=== PATIENT | female | born 1960 | race Native Hawaiian/Other Pacific Islander ===

== ENCOUNTER 2017-09-11 00:30 | Emergency (ER) | payer OTHER ==
[2017-09-11] MEDS ORDERED: TDAP Vaccine 0.5 mL Syr IM ONE (01:16)
--- NOTE | 2017-09-11 01:33 | ED PDOC ---
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 States patient she was taking care of has a history of diabetes and advanced dementia. (Cal Kolb) Past Medical History - Provider Review Nursing Documentation Reviewed: Yes <Cal Kolb - Last Filed: 09/11/17 03:14> Family/Social History - Physician Review Nursing Documentation Reviewed: Yes Family/Social History: Other (non-contributory) <Cal Kolb - Last Filed: 09/11/17 03:14> Allergies/Home Meds <Eugenio Shea - Last Filed: 09/11/17 01:53> <Cal Kolb - Last Filed: 09/11/17 03:14> Allergies/Adverse Reactions: Allergies No Known Allergies Allergy (Verified 09/11/17 01:16) Review of Systems - Physician Review All systems were reviewed & negative as marked: Yes - Review of Systems Constitutional: Normal. absent: Fatigue Eyes: Normal. absent: Vision Changes ENT: Normal Respiratory: Normal. absent: SOB, Cough Cardiovascular: Normal. absent: Chest Pain, Palpitations Gastrointestinal: Normal. absent: Abdominal Pain, Diarrhea, Vomiting Genitourinary Female: Normal Musculoskeletal: Normal Neurological: Normal. absent: Headache, Dizziness Endocrine: Normal Hemo/Lymphatic: Normal Psychiatric: Normal <Cal Kolb - Last Filed: 09/11/17 03:14> Physical Exam Temperature: Afebrile Blood Pressure: Normal Pulse: Regular Respiratory Rate: Normal Appearance: Positive for: Well-Appearing, Non-Toxic, Comfortable Pain Distress: None Mental Status: Positive for: Alert and Oriented X 3 - Systems Exam Head: Present: Atraumatic, Normocephalic Pupils: Present: PERRL Extroacular Muscles: Present: EOMI Mouth: Present: Moist Mucous Membranes Neck: Present: Normal Range of Motion Respiratory/Chest: Present: Clear to Auscultation. No: Wheezes, Rhonchi Cardiovascular: Present: Regular Rate and Rhythm, Normal S1, S2 Abdomen: Present: Normal Bowel Sounds. No: Tenderness, Distention Upper Extremity: Present: Normal Inspection Lower Extremity: Present: Normal Inspection Neurological: Present: GCS=15, CN II-XII Intact, Speech Normal Skin: Present: Warm, Normal Color Psychiatric: Present: Alert, Oriented x 3, Normal Insight <Cal Kolb - Last Filed: 09/11/17 03:14> Medical Decision Making <Eugenio Shea - Last Filed: 09/11/17 01:53> - Lab Interpretations I have reviewed the lab results: Yes Interpretation: Abnormal lab values (hypokalemia) <Cal Kolb - Last Filed: 09/11/17 03:14> ED Course and Treatment: 09/11/17 01:47 Rowena Ye is a 57 year old female who presents to the emergency department for further evaluation s/p needle stick injury. In agreement with resident note which contains additional HPI details. Patient was seen and evaluated with resident, came up with plan and treatment together. (Eugenio Shea) 09/11/17 01:33 Patient was given the option to be treated for HIV and Hepatitis however patient states she does not believe her patient had these diseases therefore does not believe it is necessary to be treated for these diseases. 09/11/17 02:50 Patient foudn to be hypokalemic on labs; repleted. Patient administered TDAP. Refused HIV and Hepatitis treatment states will wait for results to come back. (Cal Kolb) - Lab Interpretations Lab Results: 09/11/17 01:46 09/11/17 01:46 Lab Results 09/11/17 02:15: Urine Color Yellow, Urine Appearance Clear, Urine pH 6.0, Ur Specific Avant 1.020, Urine Protein Negative, Urine Glucose (UA) Negative, Urine Ketones Negative, Urine Blood Small H, Urine Nitrate Negative, Urine Bilirubin Negative, Urine Urobilinogen 0.2, Ur Leukocyte Esterase Trace H, Urine RBC Pending, Urine WBC Pending 09/11/17 01:46: Sodium 147, Potassium 3.4 L, Chloride 106, Carbon Dioxide 26, Anion Gap 18, BUN 16, Creatinine 0.7, Est GFR ( Amer) > 60, Est GFR (Non- Af Amer) > 60, Random Glucose 90, Calcium 9.1, Total Bilirubin 0.8, AST 35, ALT 49, Alkaline Phosphatase 67, Total Protein 7.0, Albumin 4.4, Globulin 2.6, Albumin/Globulin Ratio 1.7, Amylase 103 09/11/17 01:46: WBC 7.3, RBC 4.63, Hgb 13.4, Hct 40.2, MCV 86.8, MCH 28.9, MCHC 33.3, RDW 13.5, Plt Count 259, MPV 9.9, Gran % 55.7, Lymph % (Auto) 35.5 H, [place] % (Auto) 6.2 H, Eos % (Auto) 1.9, Baso % (Auto) 0.7, Gran # 4.06, Lymph # ( Auto) 2.6, [place] # (Auto) 0.5, Eos # (Auto) 0.1, Baso # (Auto) 0.05 - Medication Orders Current Medication Orders: Discontinued Medications Potassium Chloride (K-Dur 20 Meq Er Tab) 20 meq PO STAT STA Stop: 09/11/17 02:36 Last Admin: 09/11/17 02:50 Dose: 20 meq Tetanus/Reduced Diphtheria/Acell Pertussis (Boostrix Vaccine Inj) 0.5 ml IM .ONCE ONE Stop: 09/11/17 01:17 Last Admin: 09/11/17 02:50 Dose: 0.5 ml - PA / ROLL HANDLER / Resident Statement JUAN PABLO has reviewed & agrees with the documentation as recorded. JUAN PABLO has examined the patient and agrees with the treatment plan. <Eugenio Shea - Last Filed: 09/11/17 01:53> Disposition/Present on Arrival <Eugenio Shea - Last Filed: 09/11/17 01:53> - Present on Arrival Any Indicators Present on Arrival: No History of DVT/PE: No History of Uncontrolled Diabetes: No Urinary Catheter: No History of Decub. Ulcer: No History Surgical Site Infection Following: None - Disposition Have Diagnosis and Disposition been Completed?: Yes Disposition Time: 02:46 Patient Plan: Discharge <Cal Kolb - Last Filed: 09/11/17 03:14> - Disposition Diagnosis: Needle stick injury Disposition: HOME/ ROUTINE Condition: GOOD Additional Instructions: Mrs. Ye, thank you for letting us take care of you today. You came to [facility] department for further evaluation regarding your needle stick injury. The emergency medical care you received today was directed at your acute symptoms. If you were prescribed any medication, please fill it and take as directed. It may take several days for your symptoms to resolve. Return to the Emergency Department if your symptoms worsen, do not improve, or if you have any other problems. Please contact your doctor or call one of the physicians/clinics you have been referred to that are listed on the Patient Visit Information form that is included in your discharge packet for follow up on your remaining lab results regarding your injury. Bring any paperwork you were given at discharge with you along with any medications you are taking to your follow up visit. Our treatment cannot replace ongoing medical care by a primary care provider (PCP) outside of the emergency department. Thank you for allowing the [facility] team to be part of your care today. If you had an X-Ray or CT scan: A Radiologist will review the ED reading if any change in treatment is needed we will contact you. If you had a blood, urine, or wound culture: It will take several days for the results, if any change in treatment is needed we will contact you. If you had an STI test: It will take 48 hours for the results. Please call after 1 week if you have not heard back. Referrals: [facility] [Outside] - Follow up with primary Forms: [employer] (Korean)
[2017-09-11 02:08] LABS: ALB/GLOB RATIO 1.7 (1.1-1.8); ALBUMIN 4.4 g/dL (3.0-4.8); ALT/SGPT 49 U/L (7-56); AMYLASE 103 U/L (35-125); AST/SGOT 35 U/L (14-36); BLOOD UREA NITROGEN 16 mg/dL (7-21); CALCIUM 9.1 mg/dL (8.4-10.5); GFR AFRICAN-AMERICAN > 60; GFR NON-AFRICAN AMERICAN > 60
[2017-09-11 02:09] LABS: BASO # 0.05 K/mm3 (0.0-2.0); BASO % 0.7 % (0.0-3.0); EOS # 0.1 (0.0-0.7); EOS % 1.9 % (1.5-5.0); GRAN # 4.06 (1.4-6.5); GRAN % 55.7 % (50.0-68.0); HEMOGLOBIN 13.4 g/dL (12.0-16.0); LYMPH # 2.6 (1.2-3.4); LYMPH % 35.5 % (22.0-35.0); MEAN CELL VOLUME 86.8 fl (80.0-105.0); MEAN CORPUSCULAR HEMOGLOBIN 28.9 pg (25.0-35.0); MEAN CORPUSCULAR HGB CONC 33.3 g/dl (31.0-37.0); MEAN PLATELET VOLUME 9.9 fl (7.0-11.0); MONO # 0.5 (0.1-0.6); MONO % 6.2 % (1.0-6.0); RBC 4.63 10^6/uL (3.5-6.1); RED CELL DISTRIBUTION WIDTH 13.5 % (11.5-14.5); WHITE BLOOD COUNT 7.3 10^3/ul (4.5-11.0)
[2017-09-11] MEDS ORDERED: Potassium Chloride 20 mEq ER Tab PO STA (02:35)
[2017-09-11 03:06] LABS: URINE BILIRUBIN NEGATIVE (NEGATIVE); URINE BLOOD SMALL (NEGATIVE); URINE GLUCOSE (UA) NEGATIVE (NEGATIVE); URINE LEUKOCYTE ESTERASE TRACE Leu/uL (NEGATIVE); URINE PROTEIN NEGATIVE mg/dL (<30 mg/dL); URINE UROBILINOGEN 0.2 E.U./dL (<1 E.U./dL)
[2017-09-11 03:10] LABS: URINE APPEARANCE CLEAR (CLEAR); URINE COLOR YELLOW (YELLOW)
[2017-09-11 03:41] VITALS: BP 135/76; PULSE 75; RESP 20; TEMP 98.2; O2SAT 100
[2017-09-11 03:50] LABS: URINE RBC 0 - 2 /hpf (0-2)
[2017-09-11 03:51] LABS: URINE BACTERIA RARE (NEG); URINE EPITHELIAL CELLS 0 - 2 /hpf (0-5)
[2017-09-11 12:14] LABS: HEPATITIS B SURFACE AG Negative (NEGATIVE)
[2017-09-11 12:21] LABS: HEPATITIS A IGM NEGATIVE (NEGATIVE); HEPATITIS B CORE AB NEGATIVE (NEGATIVE)
[2017-09-11 12:31] LABS: HEPATITIS C ANTIBODY NEGATIVE (NEGATIVE)
== END 2017-09-11 02:52 | disposition home or self-care (01) ==
LOC: ED 00:30 → MERGE 00:30 → ED 02:52
DX: T14.90XA Injury, unspecified, initial encounter (principal); W46.0XXA Contact with hypodermic needle, initial encounter; Y92.89 Other specified places as the place of occurrence of the external cause; Y99.0 Civilian activity done for income or pay; E11.9 Type 2 diabetes mellitus without complications; Z23 Encounter for immunization